=== PATIENT | male | born 1950 | race African-American/Black ===

== ENCOUNTER → 2016-09-12 | Outpatient (CLI) | payer MEDICARE ==
--- NOTE | ~2016-09-12 | CT57 ---
[facility] A Service of [facility] & [facility] RADIOLOGY TEXT RESULTS PATIENT: MONA ALVARADO LOCATION: [facility] : 46 UNIT #: [id number] AGE: [address]: Chelsey Moreno SEX: M ORDER DR: [id number] [facility] [address] [place], [place] [address] [id number] MR#: [id number] Acc #: [id number] NAME: MONA ALVARADO : 1950 SEX: M STUDY DATE/TIME: 09/12/2016 14:26 UNIT: [facility] ROOM: STUDY DESCRIPTION: CT Chest Wo Cont Attending Physician: Chelsey Moreno A.P.R.N. Referring Physician: Chelsey Moreno A.P.R.N. Ordering Physician: Chelsey Moreno A.P.R.N. Primary Care Physician: [facility] MEDICAL IMAGING REPORT This report is preliminary unless electronic signature is present EXAM CT chest without contrast HISTORY Pulmonary fibrosis. Chronic shortness of air. TECHNIQUE This CT exam was performed with one or more of the following radiation dose reduction techniques: automatic control, adjustment of mA and/or kV according to patient size, and iterative reconstruction. FINDINGS CT chest without contrast is compared to 07/31/2016. There is extensive coarse interstitial scarring and end stage honeycombing in the inferior and peripheral lower lobes bilaterally, and less extensive subpleural interstitial scarring throughout the mid to upper lungs bilaterally. There is associated [id number] bronchiectasis primarily in the lower lobes. The area of patchy density in the inferolateral right upper lobe noted on prior chest CTs 06/07/2016 and 08/02/2016 is unchanged and is compatible with focal scarring. No new infiltrates. No effusions. Stable mild precarinal adenopathy measuring 1.2 cm.. No new adenopathy. Stable mild chronic compression of the superior endplate of T12. IMPRESSION 1. Extensive end stage interstitial scarring and thickening throughout the peripheral and inferior lower lobes with associated honeycombing and mild bronchiectasis in the bilateral lower lobes. There are less extensive peripheral subpleural interstitial changes with associated honeycombing throughout the mid and upper lungs bilaterally. Findings are characteristic of UIP and are unchanged compared to 08/02/2016. [facility] A Service of [facility] RADIOLOGY TEXT RESULTS PATIENT: MONA ALVARADO LOCATION: [facility] : 46 UNIT #: [id number] AGE: [address]: Chelsey Moreno SEX: M ORDER DR: 2. Focal patchy density in the inferolateral right upper lobe is also unchanged compared to CTs dating back to 06/05/2016 and is characteristic of focal fibrotic change. No new infiltrates. No effusions. 3. Stable mild precarinal adenopathy measures 1.2 cm in short axis dimension and could be reactive or inflammatory. Dictated by... Kwame Juarez M.D. THIS IS AN ELECTRONICALLY VERIFIED REPORT Kwame Juarez M.D. at 09/12/2016 10:51 PM DFL/lisa TD: 09/12/2016 20:08 JOB #: [id number] MEDICAL IMAGING REPORT Page 1 of 1 COPY
== END | disposition home or self-care (01) ==
LOC: CECH 13:22
DX: R06.02 Shortness of breath (principal); J84.10 Pulmonary fibrosis, unspecified; R93.8 Abnormal findings on diagnostic imaging of other specified body structures; R07.9 Chest pain, unspecified; J98.4 Other disorders of lung; J47.9 Bronchiectasis, uncomplicated; R59.0 Localized enlarged lymph nodes
CPT/HCPCS: 71250; 93306